=== PATIENT | female | born 1980 | race Caucasian/White ===

== ENCOUNTER 2022-01-14 13:00 | Outpatient (RCR) | payer OTHER, SELFPAY ==
--- NOTE | 2022-01-14 13:28 | PTOPEVAL ---
Thank you for referring Anusha Llanos to [facility].? The patient is scheduled to be seen for therapy? __2__x/week for 8 visits. Please review, sign, date and return this plan of care CASEY. I agree with and certify that the following plan of care is medically necessary. Referring Physician Date Admitting Provider: Attending Provider: Alonzo Moore DO Referring Provider: *PT Outpatient Evaluation Start: 01/14/22 12:56 Freq: Status: Active Protocol: Document 01/14/22 12:56 ANDRADE (Rec: 01/14/22 13:27 ANDRADE [email or web address]) Therapy Assessment Status Assessment Status Assessment Status Evaluation Evaluation Information Problem Diagnosis sciatica Onset 11/17/21 Subjective Information Pt. reports that she developed Query Text:As Reported By Patient/ back pain on November 17. she Family reports that she had no incident that increased her pain. She reports pain is across the low back and into the right buttock and tingling into the right calf. She reports that tingling in the heel is constant, but states that pain is best with standing. She reports that bending forward increases her pain. She states that she cannot bend over to put her pants on without pain. She states that pain is decreased with movement. She reports that her goal is to decrease her leg and back pain. Pain Assessment Timing of Pain Assessment Timing of Pain Assessment Pre-Treatment Pain Scale Pain Scale Used Numeric (1 - 10) Self Report Pain Assessment Right Lower Back Reported Pain Level 1 Pain Frequency Continuous Lowest Pain Intensity 1 Greatest Pain Intensity 10 Pain Score Pain Score 1: Self Report Interventions Used Interventions Used By Clinicians Electrical Stimulation, Exercise,Heat Cervical and Lumbar ROM Lumbar ROM Lumbar Flexion Active Knee Query Text:Hands to: Lumbar Extension (0-40) 35 Query Text:Active in Degrees Lumbar Lateral Flexion Right (0-40) 35 Query Text:Active in Degrees Lumbar Lateral Flexion Left (0-40) 25 Query Text:Active in Degrees Cervical and Lumbar Muscle Testing Lumbar Strength Upper Abdominal Strength
== END 2022-02-11 11:19 | disposition home or self-care (01) ==
LOC: CHSPT 13:00
PROVIDERS: PCP Family Medicine; Visit Provider Family Medicine
DX: M54.30 Sciatica, unspecified side (principal)
CPT/HCPCS: 97012; 97014; 97110; 97140; 97161; G0283

== ENCOUNTER 2022-01-17 09:47 | Outpatient (CLI) | payer OTHER, SELFPAY ==
--- NOTE | ~2022-01-17 | MR_ITS ---
EXAMINATION: MR lumbar spine wo con DATE: 01/17/2022 10:25 INDICATION: Sciatica. TECHNIQUE: Magnetic resonance imaging (MRI) of the lumbar spine was performed without intravenous con trast. Sequences included sagittal T2-weighted FSE, sagittal T2-weighted FS FSE, sagittal T1-weighted FSE, and axial T2-weighted FSE. COMPARISON: None FINDINGS: Bone alignment is normal. There is mild chronic anterior wedging of T12 vertebral body. The re is mildly decreased disc height at L5-S1. The distal spinal cord signal intensity is normal. The c onus medullaris is at L1. The following disc levels are specifically discussed: L1-L2: The disc does not extend beyond the endplate margin. There is moderate right and mild left fac et joint osteoarthritis. There is no neural foraminal stenosis. There is no central canal stenosis. L2-L3: The disc does not extend beyond the endplate margin. There is mild bilateral facet joint osteo arthritis. There is no neural foraminal stenosis. There is no central canal stenosis. L3-L4: The disc does not extend beyond the endplate margin. There is no facet joint osteoarthritis. T here is no neural foraminal stenosis. There is no central canal stenosis. L4-L5: The disc does not extend beyond the endplate margin. There is mild bilateral facet joint osteo arthritis. There is no neural foraminal stenosis. There is no central canal stenosis. L5-S1: The disc is bulging and has an annular fissure. There is mild bilateral facet joint osteoarthr itis. There is mild right neural foraminal stenosis. There is mild central canal stenosis. IMPRESSION: 1. Mild lumbar spondylosis. Reviewed, dictated and finalized at location A. IMPRESSION: 1. Mild lumbar spondylosis.
== END 2022-01-17 09:48 | disposition home or self-care (01) ==
LOC: CHSIMG 09:48
PROVIDERS: PCP Family Medicine; Visit Provider Family Medicine
DX: M54.30 Sciatica, unspecified side (principal)
CPT/HCPCS: 72148

== ENCOUNTER 2022-06-26 21:19 | Emergency (ER) | payer OTHER, SELFPAY ==
--- NOTE | ~2022-06-26 | XR_ITS ---
XR chest 2V DATE: 06/26/2022 22:28 INDICATION: Cough, fever TECHNIQUE: PA and lateral views COMPARISON: None FINDINGS: Normal heart size. No hilar or mediastinal enlargement. No pulmonary infiltrate or consolid ation, pulmonary vascular congestion, pleural effusion or pneumothorax. IMPRESSION: No active cardiopulmonary disease Reviewed, dictated and finalized at location A. TEACHER
[2022-06-26 21:20] VITALS: BP 138/90; PULSE 90; RESP 20; TEMP 37.2; O2SAT 99
--- NOTE | 2022-06-26 21:30 | ED.URI ---
HPI - URI/Sore Throat General Chief Complaint: Upper Respiratory Infection Stated Complaint: chest tightness ,cough ,body aches Time Seen by Provider: 06/26/22 21:26 Source: patient, family and RN notes reviewed Mode of arrival: ambulatory Limitations: no limitations History of Present Illness MD elicited complaint: fever and cough Onset (ago): hour(s) (15) Consistency: constant Severity: moderate Description of mucous: clear Able to tolerate fluids by mouth: Yes Exacerbating factors: nothing Relieving factors: nothing Associated symptoms: fever, chills, myalgias, headache, rhinorrhea and sore throat (from coughing) Related Data Home Medications Medication Instructions Recorded Confirmed No Home Medications 06/26/22 06/26/22 Allergies Allergy/AdvReac Type Severity Reaction Status Date / Time No Known Allergies Allergy Unverified 01/12/22 14:00 Review of Systems Review of Systems: All systems reviewed & are unremarkable except as noted in HPI and below PMFSH Past Medical History Medical History Skin cancer Family History Family History Father Diabetes mellitus Hypertension Social History Social History Smoking status: Never smoker Alcohol intake: current Exam Const: General: healthy appearing, no acute distress and alert Nutritional Appearance: well nourished Orientation/consciousness: patient oriented x3 Limitations: no limitations Other: Female tech in room during examination. HENMT: Head: normal to inspection Ears: external ears normal Face/Nose/Sinus: Normal external nose present Face and sinus: normal facial exam Mouth: Yes moist mucous membranes Throat: posterior oropharynx normal and uvula midline Eyes: Conjunctivae: conjunctivae normal Pupils: Equal, round and reactive pupils present EOM: EOMs intact bilaterally Neck: Neck: normal visual inspection and no lymphadenopathy Resp: Effort & Inspection: normal respiratory effort Auscultation: clear to auscultation bilaterally Cardio: Rate: regular rate Rhythm: regular rhythm GI: GI Palp: Yes Soft to palpation and No Tenderness to palpation present (GI) Auscultation: normal bowel sounds Back/Spine/Pelvis: Cervical Spine: cervical ROM normal Thoracic/Lumbar Spine: thoraco-lumbar ROM normal Skin: General skin exam: normal color Rashes: no rashes Neuro: General: patient oriented x3, moves all extremities, no focal motor deficits and CN's II-XI intact bilaterally Speech: normal speech Gait exam (Neuro): Normal gait present Extrem: General: normal to inspection and no clubbing, cyanosis or edema Psych: Mental Status: mental status grossly normal Affect: normal affect Attitude: cooperative Course Vital Signs Vital signs: Vital Signs Temperature 37.2 C 06/26/22 21:20 Pulse Rate 90 06/26/22 21:20 Respiratory Rate 20 06/26/22 21:20 Blood Pressure 138/90 06/26/22 21:20 Pulse Oximetry 99 06/26/22 21:20 Oxygen Delivery Room Air 06/26/22 21:20 Temperature 37.2 C 06/26/22 21:20 Pulse Rate 90 06/26/22 21:20 Respiratory Rate 20 06/26/22 21:20 Blood Pressure 138/90 06/26/22 21:20 Pulse Oximetry 99 06/26/22 21:20 Oxygen Delivery Room Air 06/26/22 21:20 MDM - URI/Sore Throat Differential Diagnosis Differential diagnosis: Likely upper respiratory infection, viral infection, bronchitis, influenza and other (COVID) Lab Data Attestation: I reviewed the patient's lab results. Labs: Lab Results 06/26/22 Range/Units 21:35 Influenza A (RT-PCR) Negative (Negative) Influenza B (RT-PCR) Negative (Negative) RSV (RT-PCR) Negative (Negative) SARS-CoV-2 RNA (RT-PCR) Negative (Negative) Discharge Plan Discharge Clinical Impression: Upper respiratory infection Qualifiers: URI type: acute nasophary
--- NOTE | 2022-06-26 21:40 | PC.NURSE ---
Accompanied Dr. Saleem into room for pt's examination.
[2022-06-26 22:13] LABS: Influenza A QL RT-PCR Negative (Negative); Influenza B QL RT-PCR Negative (Negative); SARS-CoV-2 RNA PCR Negative (Negative)
[2022-06-26 22:14] LABS: RSV RNA, RT-PCR Negative (Negative)
[2022-06-26 22:55] VITALS: BP 130/89; PULSE 89; RESP 20; TEMP 37.2; O2SAT 100
== END 2022-06-26 22:58 | disposition home or self-care (01) ==
PROVIDERS: Emergency Provider Emergency Medicine; PCP Family Medicine
DX: J00 Acute nasopharyngitis [common cold] (principal); Z20.822 Contact with and (suspected) exposure to COVID-19
CPT/HCPCS: 71046; 87637; 99283

== ENCOUNTER 2022-07-01 10:58 | Outpatient (CLI) | payer OTHER, SELFPAY ==
--- NOTE | 2022-07-01 11:15 | ECG_ITS ---
Measurements Intervals [place] Rate: 72 P: 17 MN: 144 QRS: -38 QRSD: 117 T: 23 QT: 368 QTc: 403 Interpretive Statements SINUS RHYTHM LEFT AXIS DEVIATION [QRS AXIS < -30] INCOMPLETE RIGHT BUNDLE BRANCH BLOCK BORDERLINE ECG NO PREVIOUS ECG AVAILABLE FOR COMPARISON Electronically Signed On 07-01-2022 17:09:14 OFFSET PRESS OPERATOR APPRENTICE by Osman Bhatt M.D.
[2022-07-01 11:18] LABS: Basophils Absolute Auto 0.02 K/mm3 (0.00-0.10); Basophils Percent Auto 0.3 % (0.0-1.0); Eosinophils Absolute Auto 0.05 K/mm3 (0.02-0.50); Eosinophils Percent Auto 0.8 % (1.0-6.0); Hematocrit 41.7 % (35.0-49.0); Immature Granulocyte Absolute 0.01 K/mm3 (0.00-0.00); Immature Granulocyte Percent A 0.2 % (0.0-0.0); Lymphocytes Absolute Auto 1.46 K/mm3 (1.10-4.50); Lymphocytes Percent Auto 23.9 % (18.0-42.0); Mean Corpuscular HGB Conc 33.6 g/dL (32.0-36.0); Mean Corpuscular Hemoglobin 31.8 pg (27.0-31.0); Mean Corpuscular Volume 94.8 fL (78.0-102.0); Mean Platelet Volume 10.2 fl (9.2-11.8); Monocytes Absolute Auto 0.54 K/mm3 (0.10-0.90); Monocytes Percent Auto 8.8 % (2.0-11.0); Platelet Count Result 249 K/mm3 (150-420); Red Cell Distribution Width 11.7 % (11.6-14.4); White Blood Count 6.1 K/mm3 (4.8-10.8)
[2022-07-01 12:08] LABS: Alanine Aminotransferase 58 U/L (14-59); Albumin Level 3.7 g/dL (3.4-5.0); Alkaline Phosphatase 104 U/L (46-116); Anion Gap 9 mmol/L (8-16); Aspartate Amino Transferase 32 U/L (15-37); Bilirubin,Total 0.5 mg/dL (0.00-1.00); Blood Urea Nitrogen 6 mg/dL (7-18); Calcium 8.7 mg/dL (8.5-10.1); Carbon Dioxide 30 mmol/L (21-32); Chloride 101 mmol/L (98-108); Cholesterol 140 mg/dL (0-200); Estimated Glomerular Filt Rate > 60; Glucose 92 mg/dL (70-99); HDL Direct 48 mg/dL (40-60); LDL Cholesterol Calculated 61 mg/dL (<130); Osmolality Calculated 287 mOsm/kg (285-295); Potassium 3.8 mmol/L (3.5-5.1); Sodium 140 mmol/L (136-145); Thyroid Stimulating Hormone 0.29 uIU/mL (0.36-3.74); Total Protein 7.2 g/dL (6.4-8.2); Triglycerides 156 mg/dL (0-150)
[2022-07-02 10:50] LABS: Troponin I < 4.0 ng/L (0.00-60.4)
== END 2022-07-01 10:59 | disposition home or self-care (01) ==
LOC: CHSLAB 11:00
PROVIDERS: PCP Family Medicine; Visit Provider Nurse Practitioner Family
DX: Z00.00 Encounter for general adult medical examination without abnormal findings (principal); R07.89 Other chest pain; I45.19 Other right bundle-branch block
CPT/HCPCS: 36415; 80053; 80061; 84439; 84443; 84484; 85025; 93005

== ENCOUNTER 2022-08-05 10:44 | Outpatient (CLI) | payer OTHER, SELFPAY ==
--- NOTE | ~2022-08-05 | XR_ITS ---
EXAMINATION: XR chest 2V DATE: 08/05/2022 11:40 INDICATION: Posterior left chest pain with wheezing and palpitations TECHNIQUE: PA and lateral views of the chest were obtained. COMPARISON: Chest radiograph dated 06/26/2022 FINDINGS: Unchanged small calcified nodules at the lateral left lower lung zone and at the right apex consisten t with old granulomatous disease. No new airspace opacities, pulmonary edema, pleural effusion or pne umothorax. The cardiomediastinal silhouette is normal. Visualized bones and soft tissues are unremark able. IMPRESSION: 1. No acute cardiopulmonary disease. Reviewed, dictated and finalized at location A. R AND SANDER
--- NOTE | 2022-08-05 11:07 | ECG_ITS ---
Measurements Intervals [place] Rate: 57 P: 46 MN: 137 QRS: 34 QRSD: 112 T: 30 QT: 389 QTc: 382 Interpretive Statements SINUS BRADYCARDIA INCOMPLETE RIGHT BUNDLE BRANCH BLOCK [90+ ms QRS DURATION, TERMINAL R IN V1/V2, 40+ ms S IN I/aVL/V4/V5/V6] ABNORMAL ECG COMPARED TO ECG 07/01/2022 11:55:42 SINUS BRADYCARDIA NOW PRESENT Electronically Signed On 08-06-2022 10:12:39 PETROGRAPHER by Darryn Vincent M.D.
[2022-08-05 12:12] LABS: Free T4 Free Thyroxine 0.82 ng/dL (0.76-1.46); Thyroid Stimulating Hormone 0.62 uIU/mL (0.36-3.74)
[2022-08-08 04:45] LABS: FSH 2.9 mIU/mL (***)
== END 2022-08-05 10:45 | disposition home or self-care (01) ==
LOC: CHSLAB 10:48
PROVIDERS: PCP Family Medicine; Visit Provider Nurse Practitioner Family
DX: E05.90 Thyrotoxicosis, unspecified without thyrotoxic crisis or storm (principal); R07.89 Other chest pain; R94.31 Abnormal electrocardiogram [ECG] [EKG]; R00.1 Bradycardia, unspecified
CPT/HCPCS: 36415; 71046; 83001; 83002; 84439; 84443; 93005

== ENCOUNTER 2023-03-06 09:55 | Emergency (ER) | payer OTHER, SELFPAY ==
[2023-03-06 10:05] VITALS: BP 125/84; PULSE 89; RESP 16; TEMP 37; O2SAT 100
--- NOTE | 2023-03-06 10:17 | ED.URI ---
HPI - URI/Sore Throat General Chief Complaint: Upper Respiratory Infection Stated Complaint: SORE THROAT Time Seen by Provider: 03/06/23 10:14 Source: patient and RN notes reviewed Mode of arrival: ambulatory Limitations: no limitations History of Present Illness HPI Narrative: 42-year-old female presents concern for sore throat, body aches, painful swallowing that started earlier this week. She reports she has been trying multiple [id number] medications without relief. For symptoms seem to be worsening. MD elicited complaint: sore throat Related Data Allergies Allergy/AdvReac Type Severity Reaction Status Date / Time No Known Allergies Allergy Verified 03/06/23 10:23 Review of Systems Review of Systems: CONSTITUTIONAL: Reports malaise. Denies chills, sweats, or fever. EYES: Denies visual changes, redness, or discharge. ENT: Reports rhinorrhea, congestion,otalgia and sore throat. CARDIOVASCULAR: Denies chest pain, palpitations, or edema. RESPIRATORY: Denies cough. Denies dyspnea. GASTROINTESTINAL: Denies abdominal pain, vomiting, diarrhea. Reports nausea SKIN: Denies rash or itching. MUSCULOSKELETAL: Reports myalgia. NEUROLOGIC: Reports headache. All systems reviewed & are unremarkable except as noted in HPI and below PMFSH Past Medical History Medical History Skin cancer Family History Family History Father Diabetes mellitus Hypertension Hyperlipidemia Mother History of cholecystectomy Diverticulitis Grandparent Diverticulitis Social History Social History Smoking status: Never smoker Alcohol intake: current Lack of Transportation: No Lack of Food: Never True Current Housing: I Have Housing Concerned About Future Housing: No Difficulty Paying Gas/Electric Bills: No Difficulty Paying for Meds: No Currently Unemployed: No Education: High School Diploma/GED Difficulty w/ Childcare or Family Care: No Comments At time of signature, agree with nursing past medical, surgical, social and family history. There is no relevant family history pertinent to the presenting complaint Exam Narrative: GENERAL: Well-appearing, well-nourished, and in no acute distress. HEAD: Normocephalic EYES: PERRLA, conjunctivae clear ENT: Nares clear, clear discharge. Mucous membranes moist. TM pearly burrell with dull light reflex bilaterally; no tragal tenderness. Oropharynx erythematous without lesions. Tonsils enlarged and without exudate, no drooling, no hoarseness, no trismus, uvula midline. NECK: Supple. No lymphadenopathy CHEST: Clear to auscultation, breath sounds equal. No wheezing, rhonchi, rales, or stridor. No respiratory distress, speaks in full sentences. HEART: Regular rate and rhythm. No murmur heard. SKIN: Warm, dry, no rash. NEURO: Alert and oriented x3. PSYCH: Normal mood and affect Course Course Emergency Course: Patient is aware of diagnosis, understands and agrees to treatment plan. Anticipatory guidance given. Patient agrees to follow-up as directed and is aware of reasons to seek care at the emergency department. Portions of this record may have been created with voice recognition software Level of Care: Express Care Visit Vital Signs Vital signs: Vital Signs Temperature 98.6 F 03/06/23 10:05 Pulse Rate 89 03/06/23 10:05 Respiratory Rate 16 03/06/23 10:05 Blood Pressure 125/84 03/06/23 10:05 Pulse Oximetry 100 03/06/23 10:05 Temperature 98.6 F 03/06/23 10:05 Pulse Rate 89 03/06/23 10:05 Respiratory Rate 16 03/06/23 10:05 Blood Pressure 125/84 03/06/23 10:05 Pulse Oximetry 100 03/06/23 10:05 Reviewed. MDM - URI/Sore Throat MDM Narrative Medical decision making narrative: Differential diagnosis considered: Cat virus, strep pharyngitis, allergic rhini
== END 2023-03-06 10:36 | disposition home or self-care (01) ==
PROVIDERS: Emergency Provider Nurse Practitioner; PCP Family Medicine
DX: J02.0 Streptococcal pharyngitis (principal); Z85.828 Personal history of other malignant neoplasm of skin
CPT/HCPCS: 87880; 99213; G0463

== ENCOUNTER 2023-03-08 09:33 | Emergency (ER) | payer OTHER, SELFPAY ==
[2023-03-08 09:39] VITALS: BP 138/91; PULSE 91; RESP 19; TEMP 37.1; O2SAT 98
--- NOTE | 2023-03-08 09:54 | ED.GENADULT ---
HPI - General Adult General Chief complaint: Upper Respiratory Infection Stated complaint: strep History of Present Illness HPI narrative: Anusha is a 42F with a PMH of sciatica that presented to the ED with a sore throat. It started last week and she was diagnosed with strep at [facility] a couple days ago and started on penicillin. The sore throat is unchanged and now she has a headache. She ahs not been eating much. No fevers or systemic symptoms. Related Data Allergies Allergy/AdvReac Type Severity Reaction Status Date / Time No Known Allergies Allergy Verified 03/06/23 10:23 Review of Systems Review of Systems: All systems reviewed & are unremarkable except as noted in HPI and below PMFSH Past Medical History Medical History Skin cancer Family History Family History Father Diabetes mellitus Hypertension Hyperlipidemia Mother History of cholecystectomy Diverticulitis Grandparent Diverticulitis Social History Social History Smoking status: Never smoker Alcohol intake: current Lack of Transportation: No Lack of Food: Never True Current Housing: I Have Housing Concerned About Future Housing: No Difficulty Paying Gas/Electric Bills: No Difficulty Paying for Meds: No Currently Unemployed: No Education: High School Diploma/GED Difficulty w/ Childcare or Family Care: No Exam Const: General: healthy appearing and no acute distress Nutritional Appearance: well nourished Orientation/consciousness: patient oriented x3 HENMT: Head: normal to inspection Ears: external ears normal and TM's normal bilaterally Other: Tonsils are erythematous bilaterally. Otherwise orpharynx is wnl. No pus pocket or absces seen. Eyes: Conjunctivae: conjunctivae normal Pupils: Equal, round and reactive pupils present Neck: Neck: normal visual inspection Chest: Chest palpation & inspection: normal inspection of the chest Resp: Effort & Inspection: normal respiratory effort Auscultation: clear to auscultation bilaterally Cardio: Rate: regular rate Rhythm: regular rhythm Skin: General skin exam: normal color Neuro: General: patient oriented x3 and moves all extremities Cranial nerves: Yes Nystagmus not present Extrem: General: normal to inspection Psych: Mental Status: mental status grossly normal Affect: normal affect Attitude: cooperative Course Course Emergency Course: ordered toradol and viral testing. Vital Signs Vital signs: Vital Signs Temperature 98.7 F 03/08/23 09:39 Pulse Rate 91 03/08/23 09:39 Respiratory Rate 19 03/08/23 09:39 Blood Pressure 138/91 H 03/08/23 09:39 Pulse Oximetry 98 03/08/23 09:39 Oxygen Delivery Room Air 03/08/23 09:39 Temperature 98.9 F 03/08/23 10:54 Pulse Rate 88 03/08/23 10:54 Respiratory Rate 18 03/08/23 10:54 Blood Pressure 137/88 03/08/23 10:54 Pulse Oximetry 98 03/08/23 10:54 Oxygen Delivery Room Air 03/08/23 10:54 Medical Decision Making Vital Signs Vital Signs: Vital Signs Temperature 98.7 F 03/08/23 09:39 Pulse Rate 91 03/08/23 09:39 Respiratory Rate 19 03/08/23 09:39 Blood Pressure 138/91 H 03/08/23 09:39 Pulse Oximetry 98 03/08/23 09:39 Oxygen Delivery Room Air 03/08/23 09:39 Temperature 98.9 F 03/08/23 10:54 Pulse Rate 88 03/08/23 10:54 Respiratory Rate 18 03/08/23 10:54 Blood Pressure 137/88 03/08/23 10:54 Pulse Oximetry 98 03/08/23 10:54 Oxygen Delivery Room Air 03/08/23 10:54 Lab Data Labs: Lab Results 03/08/23 Range/Units 09:56 Influenza A (RT-PCR) Negative (Negative) Influenza B (RT-PCR) Negative (Negative) RSV (RT-PCR) Negative (Negative) SARS-CoV-2 RNA (RT-PCR) Positive A (Negative) Discharge Plan Discharge Clini
[2023-03-08] MEDS: KETOROLAC 30 MG/ML VIAL (*BKC) IM (10:01)
[2023-03-08] MEDS: ONDANSETRON HCL ODT 4 MG TABLET PO (10:17)
[2023-03-08] MEDS: DEXAMETHASONE 2 MG TABLET 10 MG PO (10:18)
[2023-03-08 10:37] LABS: Influenza A QL RT-PCR Negative (Negative); Influenza B QL RT-PCR Negative (Negative); RSV RNA, RT-PCR Negative (Negative); SARS-CoV-2 RNA PCR Positive (Negative)
[2023-03-08 10:54] VITALS: BP 137/88; PULSE 88; RESP 18; TEMP 37.2; O2SAT 98
--- NOTE | 2023-03-08 11:08 | PC.NURSE ---
[facility] is closed today, Prescription for zofran called into [facility] in [place] per patient request.
== END 2023-03-08 10:59 | disposition home or self-care (01) ==
PROVIDERS: Emergency Provider Family Medicine; PCP Family Medicine
DX: U07.1 COVID-19 (principal); J02.0 Streptococcal pharyngitis; Z85.828 Personal history of other malignant neoplasm of skin
CPT/HCPCS: 87637; 96372; 99283; A9270; J1885; J8540

== ENCOUNTER 2023-06-01 10:46 | Outpatient (CLI) | payer OTHER, SELFPAY ==
[2023-06-01 11:13] LABS: Basophils Absolute Auto 0.04 K/mm3 (0.00-0.10); Basophils Percent Auto 0.6 % (0.0-1.0); Eosinophils Absolute Auto 0.07 K/mm3 (0.02-0.50); Eosinophils Percent Auto 1.1 % (1.0-6.0); Hematocrit 44.1 % (35.0-49.0); Hemoglobin 14.9 g/dL (12.0-15.0); Immature Granulocyte Absolute 0.03 K/mm3 (0.00-0.00); Immature Granulocyte Percent A 0.5 % (0.0-0.0); Lymphocytes Percent Auto 30.8 % (18.0-42.0); Mean Corpuscular HGB Conc 33.8 g/dL (32.0-36.0); Mean Corpuscular Hemoglobin 31.4 pg (27.0-31.0); Mean Platelet Volume 9.9 fl (9.2-11.8); Monocytes Absolute Auto 0.49 K/mm3 (0.10-0.90); Monocytes Percent Auto 7.6 % (2.0-11.0); Neutrophils Absolute Auto 3.9 K/mm3 (1.7-7.2); Neutrophils Percent Auto 59.4 % (50.0-70.0); Platelet Count Result 408 K/mm3 (150-420); Red Blood Count 4.74 M/mm3 (4.20-5.40); Red Cell Distribution Width 11.9 % (11.6-14.4); White Blood Count 6.5 K/mm3 (4.8-10.8)
[2023-06-01 12:16] LABS: Alanine Aminotransferase 37 U/L (14-59); Albumin Level 3.9 g/dL (3.4-5.0); Alkaline Phosphatase 77 U/L (46-116); Anion Gap 10 mmol/L (8-16); Aspartate Amino Transferase 19 U/L (15-37); Bilirubin,Total 0.7 mg/dL (0.00-1.00); Blood Urea Nitrogen 10 mg/dL (7-18); CRP 0.5 mg/dL (0.0-0.9); Calcium 9.8 mg/dL (8.5-10.1); Carbon Dioxide 28 mmol/L (21-32); Chloride 101 mmol/L (98-108); Estimated Glomerular Filt Rate > 60; Glucose 87 mg/dL (70-99); Lipase 47 U/L (16-77); Osmolality Calculated 286 mOsm/kg (285-295); Potassium 4.3 mmol/L (3.5-5.1); Sodium 139 mmol/L (136-145); Total Protein 7.7 g/dL (6.4-8.2); Vitamin B12 375 pg/mL (193-986)
[2023-06-01 12:17] LABS: Folic Acid > 20.0 ng/mL (8.6->20)
[2023-06-01 13:04] LABS: Occult Blood Negative (Negative)
[2023-06-01 13:21] LABS: Thyroid Stimulating Hormone Reflex 0.48 u/IU/mL (0.36-3.74)
[2023-06-03 14:38] LABS: Lactoferrin, Stool Negative (Negative)
[2023-06-04 10:02] LABS: Immunoglobulin A 382 mg/dL (47-310); TTG IGA AB <1.0 U/mL (<15.0)
== END 2023-06-01 10:47 | disposition home or self-care (01) ==
LOC: CHSLAB 10:48
PROVIDERS: PCP Family Medicine; Visit Provider Family Medicine
DX: E11.9 Type 2 diabetes mellitus without complications (principal); R10.9 Unspecified abdominal pain; E53.8 Deficiency of other specified B group vitamins; K52.9 Noninfective gastroenteritis and colitis, unspecified
CPT/HCPCS: 36415; 80053; 82272; 82607; 82746; 82784; 83516; 83630; 83690; 84443; 85025; 86003; 86140; 87045; 87177; 87209; 87427; 87449

== ENCOUNTER 2023-06-25 03:01 | Day surgery (SDC) | payer OTHER, SELFPAY ==
[2023-06-17 13:31] VITALS: BMI 25.9
--- NOTE | 2023-06-23 09:08 | SUR.PREOP ---
Patient called regarding upcoming procedure. Message left on pt's voicemail regarding appointment times.
--- NOTE | 2023-06-24 09:54 | P.PNAN_ITS ---
Anes - Initial Pre Proc Eval Procedure: Operation Date: 06/25/23 10:00 Proposed Procedures p Esophagogastroduodenoscopy & Colonoscopy - Edson Nye MD Date/Time: 06/24/23 09:54 Surgeon: Edson Nye MD Pre Op Diagnosis: right upper quadrant pain,GERD,Lower Abdom pain Patient Data Age: 43 Gender: F Height: 1.68 m Weight: 73 kg Allergies Allergy/AdvReac Type Severity Reaction Status Date / Time No Known Allergies Allergy Verified 06/25/23 09:01 Home Medications Medication Instructions Recorded Confirmed Type ondansetron 4 mg disintegrating 4 mg PO Q8H PRN nausea and 03/08/23 06/25/23 Rx tablet vomiting #20 tabs dicyclomine 20 mg tablet 20 mg PO TID PRN abdominal pain 06/15/23 06/25/23 Rx #90 tabs sertraline 25 mg tablet 25 mg PO DAILY anxiety #60 tabs 06/23/23 06/25/23 Rx Patient hx anesthesia problems: none Family hx anesthesia problems: none Results Review: All pre-operative results and documents have been reviewed as part of the pre- operative evaluation. [facility] Past Medical History Medical History (Updated 06/24/23 @ 09:55 by Conor Hammer DO) Acid reflux Bloating Hyperthyroidism Lower abdominal pain Nausea Right upper quadrant pain Skin cancer Family History Family History Father Diabetes mellitus Hypertension Hyperlipidemia Mother History of cholecystectomy Diverticulitis Grandparent Diverticulitis Social History Social History Smoking status: Never smoker Alcohol intake: current Alcohol use details: socially Lack of Transportation: No Lack of Food: Never True Current Housing: I Have Housing Concerned About Future Housing: No Difficulty Paying Gas/Electric Bills: No Difficulty Paying for Meds: No Currently Unemployed: No Education: High School Diploma/GED Difficulty w/ Childcare or Family Care: No Spiritual care concerns: No Anes - Eval Final PreProcedure Day of Procedure 06/24/23 09:54 Patient weight: overweight Heart: regular rate and rhythm Lungs: clear to auscultation Airway: Mallampati scale class II Neurological: alert and oriented Last oral intake: >/= 8 hours ASA classification: II Emergent: no Anesthetic plan: proceed Anesthesia type and monitoring: general GIVS and standard monitoring Results Review: All pre-operative results and documents have been reviewed as part of the pre- operative evaluation. Informed Consent: The patient's anesthetic plan and its attendant risks and benefits were discussed with the patient/family/POA. Questions were solicited and answers provided to the satisfaction of the patient/family/POA.
[2023-06-25 09:04] VITALS: BP 115/84; PULSE 105; RESP 18; TEMP 36.7; O2SAT 98; BMI 24.9
[2023-06-25] MEDS: LACTATED RINGERS 1,000 ML 150 ML IV CONT (09:08)
--- NOTE | 2023-06-25 09:28 | WPDHPUPDATE1 ---
History and Physical Update Update Date/Time: 06/25/23 09:28 History and Physical has been reviewed, including an updated exam of the patient. There are NO changes in the patient's condition. Risks, benefits, and alternatives have been discussed and questions answered. Patient agrees to proceed with procedure.
--- NOTE | 2023-06-25 09:52 | SUR.OPER ---
EGD START 935, END 939 COLONOSCOPY START 943, END 951
[2023-06-25 09:55] VITALS: BP 93/61; PULSE 94; RESP 20; O2SAT 97
[2023-06-25 10:05] VITALS: BP 110/61; PULSE 80; RESP 22; O2SAT 97
[2023-06-25 10:15] VITALS: BP 126/78; PULSE 87; RESP 20; O2SAT 98
== END 2023-06-25 10:27 | disposition home or self-care (01) ==
PROVIDERS: PCP Family Medicine; Visit Provider Internal Medicine Gastroenterology
PROC: 0DJ08ZZ Inspection of Upper Intestinal Tract, Via Natural or Artificial Opening Endoscopic (ICD-10-PCS; CPT 43235; principal; 2023-06-25 10:00)
DX: K29.80 Duodenitis without bleeding (principal); K29.50 Unspecified chronic gastritis without bleeding; K57.30 Diverticulosis of large intestine without perforation or abscess without bleeding
CPT/HCPCS: 45380; 43239; 88305; J7120

== ENCOUNTER 2023-10-05 08:40 | Outpatient (CLI) | payer OTHER, SELFPAY ==
--- NOTE | ~2023-10-05 | US_ITS ---
Limited Abdominal Sonogram: Real-time sonographic imaging of the right upper quadrant was performed. Clinical History: Abdominal distention Findings: The liver appears normal with no evidence of mass lesion or bile duct dilatation. Main por heath vein demonstrates normal direction of flow. The gallbladder is well distended, and appears normal with no evidence of gallstone or wall thickening. The common bile duct measures 5 mm. The visualize d pancreas, aorta, and IVC are unremarkable. Impression: No significant abnormality seen. Reviewed, dictated and finalized at location . Impression: No significant abnormality seen.
--- NOTE | ~2023-10-05 | US_ITS ---
EXAMINATION: US pelvic complete w TV DATE: 10/05/2023 10:23 INDICATION: Cramping. TECHNIQUE: Multiple transabdominal and transvaginal sonographic images of the pelvis were obtained. COMPARISON: None. FINDINGS: TRANSABDOMINAL ULTRASOUND: The uterus measures 9.6 x 4.7 x 5.0 cm. There is no free fluid in the pelvis. TRANSVAGINAL ULTRASOUND: The endometrial complex measures 6 mm in thickness. The right ovary measures 2.3 x 2.7 x 1.9 cm. The left ovary measures 2.7 x 2.1 x 2.5 cm. There is normal vascular flow in the ovaries. IMPRESSION: 1. Normal pelvis. Reviewed, dictated and finalized at location A. IMPRESSION: 1. Normal pelvis.
== END 2023-10-05 08:41 | disposition home or self-care (01) ==
PROVIDERS: PCP Family Medicine; Visit Provider Nurse Practitioner Family
DX: R14.0 Abdominal distension (gaseous) (principal); R10.11 Right upper quadrant pain
CPT/HCPCS: 76705; 76830; 76856